=== PATIENT | female | born 1995 | race Caucasian/White ===

== ENCOUNTER 2016-12-29 15:14 | Emergency (ER) | payer BC ==
--- NOTE | 2016-12-29 15:44 | EDM.PDOC ---
ED HPI GENERAL MEDICAL PROBLEM - General Chief Complaint: Head Injury Stated Complaint: HIT HEAD Time Seen by Provider: 12/29/16 15:36 Source of Information: Reports: Patient History Limitations: Reports: No Limitations - History of Present Illness INITIAL COMMENTS - FREE TEXT/NARRATIVE: 21-year-old female presents to the ED after a fainting episode occurred while standing in the checkout line at [facility]. Patient states she did or shopping she felt okay. She was standing in the checkout line when she suddenly felt dizzy lightheaded and then collapsed to the floor. Unfortunately she struck her midline of her face on a wooden gate that traverses the checkout stand. This resulted in a hematoma to the midline of her frontal lower forehead and across the bridge of her nose. There's been some bleeding from the right naris but it stopped within a couple minutes of injury. She has a hematoma mid forehead. She is alert she is oriented there was no sign of seizure activity. She has not had much to eat or drink yet today. She was dressed warmly as it's quite cool outside. She is 22 weeks . All of this contributed to potential for fainting. Blood pressures running low during . She was not orthostatic in the ED. Neuro exam is normal before meals no indication for CT exam. Nasal septum is straight although she may have suffered a mild hairline fracture of the nasal spine no treatment would be indicated. Therefore x-rays were withheld. Patient reassured. Exposure to hot environments may make her more prone to fainting. Blood pressures running low in early . Patient advised about steps she can take to try and avoid a similar occurrence. May take Tylenol when necessary for headache relief and ice pack to the forehead to reduce the swelling. Onset: Today Onset Date: 12/29/16 Onset Time: 13:30 Duration: Minutes:, Hour(s): Location: Reports: Head, Face. Denies: Neck, Chest, Abdomen, Back, Pelvis, Upper Extremity, Left, Upper Extremity, Right, Lower Extremity, Left, Lower Extremity, Right Quality: Reports: Ache, Throbbing Severity: Moderate Improves with: Reports: None Worsens with: Reports: None Context: Reports: Other (fainting spell while standing andcheckout line at [facility].) Associated Symptoms: Reports: Other. 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 [No Known Home Meds] 12/29/16 [History] Past Medical History - Past Health History Medical/Surgical History: Denies Medical/Surgical History : 1 Para: 0 Social & Family History - Tobacco Use Smoking Status *Q: Never Smoker - Living Situation & Occupation Living situation: Reports: Single Occupation: Employed ED ROS GENERAL - Review of Systems Review Of Systems: See Below Constitutional: Reports: No Symptoms HEENT: Reports: Nosebleed (right side for about 2 minutes after injury.), Nose Pain (contusion to her nose when she passed out.). Denies: Contact Lenses, Dental Pain, Ear Discharge, Ear Pain, Eye Discharge, Eye Pain, Glasses, Hearing Loss Respiratory: Reports: No Symptoms Cardiovascular: Reports: No Symptoms Endocrine: Reports: No Symptoms GI/Abdominal: Reports: No Symptoms : Reports: No Symptoms Musculoskeletal: Reports: No Symptoms. Denies: Neck Pain, Shoulder Pain, Arm Pain, Back Pain Skin: Reports: No Symptoms Neurological: Reports: Headache, Other (has a hematoma midline of the lower forehead.) Psychiatric: Reports: No Symptoms Hematologic/Lymphatic: Reports: No Symptoms ( Approximately 2.5 cm in diameter) Immunologic: Reports: No Symptoms ED EXAM, HEAD INJURY - Physical Exam Exam: See Below Exam Limited By: No Limitations General Appearance: Alert, WD/WN, No Apparent Distress, Other (2.5 cm ecchymoses developing midline of her lower forehead between her eyebrows. Contusion to the bridge of her nose.). No: Anxious, Lethargic, Obtunded Head: Scalp Swelling (mid lower forehead.), Facial Swelling (mid lower forehead and bridge of nose) Nexus Criteria: No: Posterior, Midline Cervical Tenderness, Evidence of Intoxication, Altered Level of Consciousness, Focal Neurological Deficit, Painful Distraction Injuries Eyes: Bilateral Eye: Normal Inspection Ears: Normal TMs Nose: Other (there is fresh blood in the right naris without any nasal septal hematoma. The left naris is patent and normal. The nasal septum is a lot well aligned. It is tender to touch along the nasal spine but no deformities are evident.) Throat/Mouth: Normal Inspection, Normal Lips, Normal Teeth, Normal Oropharynx, Other ( midline. This will heal on its own. It is not actively bleeding.no dental injuries evident.) Neck: Non-Tender, Full Range of Motion, Normal Alignment, Normal Inspection. 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 No: CVA Tenderness (L), CVA Tenderness (R) Extremities: Normal Inspection, Normal Range of Motion, Non-Tender, No Pedal Edema, Normal Capillary Refill Neurologic: No Motor/Sensory Deficits, Alert, Normal Mood/Affect, Oriented x 3 Skin: Normal Color, Warm/Dry - [place] Coma Score Best Eye Response (Margaux): (4) Open Spontaneously Best Verbal Response (Margaux): (5) Oriented Best Motor Response ([place]): (6) Obeys Commands [place] Total: 15 Course - Vital Signs Last Recorded V/S: Last Vital Signs Temp 36.9 C 12/29/16 15:23 Pulse 79 12/29/16 15:23 Resp 18 12/29/16 15:23 BP 109/58 L 12/29/16 15:23 Pulse Ox 100 12/29/16 15:23 Orthostatic Blood Pressure [ 110/74 Standing] Orthostatic Blood Pressure [ 109/58 Supine] - Radiology Interpretation Free Text/Narrative:: 21-year-old female seen through the ED after fainting and [employer] at the checkout stand. She done her shopping was standing in line when she suddenly felt dizzy lightheaded and collapsed to the floor. She apparently came around immediately. They offered her the ambulance but she declined. She sat for a period time had some water and felt improved. Of note she is 22 weeks gestation. She's not had much to eat or drink today. She is not orthostatic. Neuro exam is completely normal. She has suffered blunt force injuries to her mid forehead with a hematoma between her eyebrows partially 2.5 cm ecchymosis and hematoma evident. Contusion to the bridge of her nose evident with possible hairline fracture of the nasal spine. There is no nasal septal hematoma in the septum is aligned normally. For x-rays and CT are not felt to be indicated at this time. She will be discharged to home to advised to have a good meal and plenty of fluids. Departure - Departure Time of Disposition: 15:47 Disposition: Home, Self-Care 01 Condition: Fair Clinical Impression: Fainting spell Contusion of face Qualifiers: Encounter type: initial encounter Qualified Code(s): S00.83XA - Contusion of other part of head, initial encounter - Discharge Information Instructions: Facial or Scalp Contusion, [id number], Syncope, [id number] Referrals: David Randle MD [Primary Care Provider] - Forms: ED Department Discharge Additional Instructions: Evaluation in the emergency room after a fainting event occurred while in the [employer] store. This occurred while standing in the checkout line after doing your shopping. By history your 22 weeks .by history you have not had a lot to eat or drink yet today. The history strongly suggests a fainting episode with blunt force trauma to your mid forehead and bridge of her nose. Loss of consciousness to sounded to be very transient. No associated evidence of seizure activity. Blood pressure tends to run low in . Also depends on much fluids you've had today whether or not she will may be a little bit low on your blood count I anemia from and then dressed warmly today due to outside temperature being rather cool. All of these factors appear to have contributed to low transient lowering of her blood pressure with a fainting spell occurring. You suffered blunt force trauma to your mid forehead with a hematoma in the midline and contusion to the bridge of your nose. There has been some bleeding from the right naris but no septal hematoma is evident. The nose is tender but is well aligned and if even if there is a hairline crack we would not need any further intervention. Neuro exam is completely normal. Therefore treatment is plenty of fluids such as Gatorade or Powerade and a good meal. No other restrictions are necessary or indicated at this time. At risk of further fainting episodes during when exposed to heat such as a hot tub or hot shower or bath. Follow-up with personal physician if any further problem's occur. It is okay to take Tylenol during for headache relief. 650 mg every 6 hours as needed
[2016-12-29 16:01] VITALS: BP 98/66
== END 2016-12-29 15:55 | disposition home or self-care (01) ==
LOC: JD.ED 15:14
DX: O99.89 Other specified diseases and conditions complicating pregnancy, childbirth and the puerperium (principal); R55 Syncope and collapse; O9A.212 Injury, poisoning and certain other consequences of external causes complicating pregnancy, second trimester; S00.83XA Contusion of other part of head, initial encounter; Z3A.22 22 weeks gestation of pregnancy; W19.XXXA Unspecified fall, initial encounter
CPT/HCPCS: 99284

== ENCOUNTER 2017-04-29 02:32 | Inpatient (IN) | payer BC ==
[2017-04-29] MEDS ORDERED: Nalbuphine 20 MG/1 ML Amp IVPUSH PRN (03:04)
[2017-04-29] MEDS ORDERED: Sodium Chloride 0.9% 10 ML Syringe FLUSH PRN (03:04)
[2017-04-29] MEDS ORDERED: Ondansetron 4 MG/2 ML SDV IVPUSH PRN (03:04)
[2017-04-29] MEDS: Lactated Ringers 1,000 ML IV SCH ×4 (03:15→07:25)
[2017-04-29] MEDS ORDERED: fentaNYL 100 MCG/2 ML SDV ONE (03:20)
[2017-04-29] MEDS ORDERED: ePHEDrine 50 MG/ML SDV IVPUSH PRN (03:27)
[2017-04-29] MEDS ORDERED: diphenhydrAMINE 50 MG/ML SDV IVPUSH PRN (03:27)
[2017-04-29] MEDS ORDERED: fentaNYL 100 MCG/2 ML SDV EPIDUR PRN (03:27)
[2017-04-29] MEDS ORDERED: Bupivacaine/fentaNYL/NS 100 ML Bag EPIDUR SCH (03:30)
--- NOTE | 2017-04-29 03:49 | PCM.LDHP ---
<Jorge Valdivia N - Last Filed: 04/29/17 03:49> L&D History of Present Illness - General Date of Service: 04/29/17 Admit Problem/Dx: Patient Status Order with Admit Dx/Problem 04/29/17 03:05 Patient Status [ADT] Routine Admission Diagnosis/Problem Admission Diagnosis/Problem Normal labor 04/29/17 03:27 Labor Source of Information: Patient, EMS, EMS Notes Reviewed History Limitations: Reports: No Limitations - History of Present Illness Introduction:: Michelle murphy a 21yo presents to labor and delivery in active labor at 4cm and 100. LMP was 07/24/16. She had regular menses occuring every 28 days. She was not on BC at conception, and menarche was at age 13. She has a history of incompetent cervix with a vaginal delivery at 17 weeks where the new born lived 2 hours. A cerclage was placed 11/09/16, which was removed at 38 weeks. She is GBS negative. At 20wk US a choroid plexus cyst was seen with no previa which has since resolved. She has TDAP in Dec 2016 and is Rubella Immune. She does have a history of recurrent UTI. She has a hitsory of Chlamydia infection with no active infection. She has had standard regular care to this point without complications except cerclage as noted above. Patient is A+ blood type. Last urine 04/21/17 was 1+ protein and Glucose negative. - Related Data Allergies/Adverse Reactions: Allergies Allergy/AdvReac Type Severity Reaction Status Date / Time No Known Allergies Allergy Verified 12/29/16 15:28 Home Medications: Home Meds Amoxicillin [Amoxicillin] 1 tab PO BID 04/29/17 [History] Past Medical History - Past Health History Medical/Surgical History: Denies Medical/Surgical History HEENT History: Reports: None Cardiovascular History: Reports: None Respiratory History: Reports: None Gastrointestinal History: Reports: None Genitourinary History: Reports: UTI, Recurrent Other Genitourinary History: history of chlamydia infection : 2 Para: 0 Other OB/BYN History: Cerclage Musculoskeletal History: Reports: None Neurological History: Reports: None Psychiatric History: Reports: None Endocrine/Metabolic History: Reports: None Hematologic History: Reports: None Immunologic History: Reports: None Oncologic (Cancer) History: Reports: None Dermatologic History: Reports: None - Infectious Disease History Infectious Disease History: Reports: None Social & Family History - Family History HEENT: Reports: None Other Cardiac Family History: Heart Disease paternal grandpa and maternal grandpa Respiratory: Reports: None Endocrine/Metabolic: Reports: Diabetes, type II Other Endocrine/Metabolic Family History: paternal grandpa - Tobacco Use Smoking Status *Q: Never Smoker - Alcohol Use Alcohol Use History: No - Recreational Drug Use Recreational Drug Use: No - Living Situation & Occupation Living situation: Reports: Single Occupation: Employed H&P Review of Systems - Review of Systems: Review Of Systems: ROS reveals no pertinent complaints other than HPI. L&D Exam - Exam Exam: See Below - Vital Signs Vital Signs: BP 120/60 Weight: 145 lb 2 oz - OB Specific Fundal Height In cm: 39 Movement: Active Heart Tones: Present Heart Tones per Min: 133 - Preston Score Preston Score Cervix Position: Posterior Preston Score Consistency: Soft Preston Score Effacement: >80% Preston Score Dilation: 3-4 cm Preston Score Infant's Station: -1 ,0 Preston Score Total: 9 - Exam General: Alert, Oriented HEENT: Conjunctiva Clear, EACs Clear, EOMI, Hearing Intact, Mucosa Moist & [place] , Nares Patent, Normal Nasal Septum, Posterior Pharynx Clear, Pupils Equal, Pupils Reactive, TMs Clear Neck: Supple, Trachea Midline Lungs: Clear to Auscultation, Normal Respiratory Effort Cardiovascular: Regular Rate, Regular Rhythm GI/Abdominal Exam: Normal Bowel Sounds, Soft, Non-Tender, No Organomegaly, No Distention, No Abnormal Bruit, No Mass, Pelvis Stable Back Exam: Full Range of Motion Skin: Warm, Dry, Intact Neurological: Cranial Nerves Intact, Reflexes Equal Bilateral Psychiatric: Alert, Normal Affect, Normal Mood - Patient Data Lab Results Last 24 hrs: Laboratory Results - last 24 hr 04/29/17 Range/Units 03:15 WBC 8.42 (3.98-10.04) K/mm3 RBC 4.36 (3.98-5.22) M/mm3 Hgb 12.5 (11.2-15.7) gm/L Hct 35.4 (34.1-44.9) % MCV 81.2 (79.4-94.8) fl MCH 28.7 (25.6-32.2) pg MCHC 35.3 (32.2-35.5) g/dl RDW Std Deviation 36.0 L (36.4-46.3) fL Plt Count 206 (182-369) K/mm3 MPV 11.8 (9.4-12.3) fl Neut % (Auto) 67.4 (34.0-71.1) % Lymph % (Auto) 21.1 (19.3-51.7) % [place] % (Auto) 9.9 (4.7-12.5) % Eos % (Auto) 0.8 (0.7-5.8) Baso % (Auto) 0.2 (0.1-1.2) % Neut # (Auto) 5.67 (1.56-6.13) K/mm3 Lymph # (Auto) 1.78 (1.18-3.74) K/mm3 [place] # (Auto) 0.83 H (0.24-0.36) K/mm3 Eos # (Auto) 0.07 (0.04-0.36) K/mm3 Baso # (Auto) 0.02 (0.01-0.08) K/mm3 Result Diagrams: 04/29/17 03:15 Problem List Initiated/Reviewed/Updated: Yes Orders Last 24hrs: Active Orders 24 hr Category Date Time Status Patient Status [ADT] Routine ADT 04/29/17 03:05 Active Activity as Tolerated [RC] PFP Care 04/29/17 03:04 Active Communication Order [RC] ASDIRECTED Care 04/29/17 03:04 Active Heart Tones [RC] ASDIRECTED Care 04/29/17 03:05 Active Notify Provider [RC] PFP Care 04/29/17 03:04 Active Notify Provider [RC] PRN Care 04/29/17 03:04 Active Peripheral IV Care [RC] . DIRECTED Care 04/29/17 03:05 Active Pump Management, Intrathecal [RC] ASDIRECTED Care 04/29/17 03:05 Active Urinary Catheter Assessment [RC] ASDIRECTED Care 04/29/17 03:04 Active Vital Signs [RC] PER UNIT ROUTINE Care 04/29/17 03:04 Active Regular Diet [DIET] Diet 04/29/17 Breakfast Active Lactated Ringers [Ringers, Lactated] 1,000 ml Med 04/29/17 03:15 Active IV ASDIRECTED Nalbuphine [Nubain] Med 04/29/17 03:04 Active 10 mg IVPUSH Q2H PRN Ondansetron [Zofran] Med 04/29/17 03:04 Active 4 mg IVPUSH Q4H PRN Oxytocin [Pitocin] 20 unit Med 04/29/17 03:15 Active Lactated Ringers [Ringers, Lactated] 1,000 ml IV ASDIRECTED Sodium Chloride 0.9% [Saline Flush] Med 04/29/17 03:04 Active 10 ml FLUSH ASDIRECTED PRN Electronic Heart Tones Ext w TOCO [WOMSER] Oth 04/29/17 03:04 Ordered Routine Electronic Heart Tones Internal [WOMSER] Per Unit Oth 04/29/17 03:04 Ordered Routine Peripheral IV Insertion Adult [OM.PC] Routine Ot 04/29/17 03:04 Ordered Resuscitation Status Routine Resus Stat 04/29/17 03:04 Ordered Medication Orders Lactated Ringer's (Ringers, Lactated) 1,000 mls @ 100 mls/hr IV ASDIRECTED MAINE Oxytocin 20 unit/ Lactated (Ringer's) 1,002 mls @ 1,503 mls/hr IV ASDIRECTED MAINE; 500 MUNITS/MIN PRN Reason: Protocol Nalbuphine HCl (Nubain) 10 mg IVPUSH Q2H PRN PRN Reason: Pain (moderate 4-6) Ondansetron HCl (Zofran) 4 mg IVPUSH Q4H PRN PRN Reason: Nausea/Vomiting Sodium Chloride (Saline Flush) 10 ml FLUSH ASDIRECTED PRN PRN Reason: Keep Vein Open Assessment/Plan Comment:: Observe in Labor and Delivery <David Randle - Last Filed: 04/29/17 08:29> L&D History of Present Illness - General Admit Problem/Dx: Patient Status Order with Admit Dx/Problem 04/29/17 03:05 Patient Status [ADT] Routine Admission Diagnosis/Problem Admission Diagnosis/Problem Normal labor Source of Information: Patient History Limitations: Reports: No Limitations - History of Present Illness Improves with: Reports: None Worsens with: Reports: None Associated Symptoms: Reports: N H&P Review of Systems - Review of Systems: Review Of Systems: See Below General: Reports: No Symptoms HEENT: Reports: No Symptoms Pulmonary: Reports: No Symptoms Cardiovascular: Reports: No Symptoms Gastrointestinal: Reports: No Symptoms Genitourinary: Reports: No Symptoms Musculoskeletal: Reports: No Symptoms Skin: Reports: No Symptoms Psychiatric: Reports: No Symptoms Neurological: Reports: No Symptoms Hematologic/Lymphatic: Reports: No Symptoms Immunologic: Reports: No Symptoms L&D Exam - Exam Exam: See Below - Vital Signs Vital Signs: Last Vital Signs Temp 97.8 F 04/29/17 03:30 Pulse 79 04/29/17 04:14 Resp 18 04/29/17 04:14 BP 108/57 L 04/29/17 04:14 Pulse Ox 98 04/29/17 04:14 - Patient Data Lab Results Last 24 hrs: Laboratory Results - last 24 hr 04/29/17 Range/Units 03:15 WBC 8.42 (3.98-10.04) K/mm3 RBC 4.36 (3.98-5.22) M/mm3 Hgb 12.5 (11.2-15.7) gm/L Hct 35.4 (34.1-44.9) % MCV 81.2 (79.4-94.8) fl MCH 28.7 (25.6-32.2) pg MCHC 35.3 (32.2-35.5) g/dl RDW Std Deviation 36.0 L (36.4-46.3) fL Plt Count 206 (182-369) K/mm3 MPV 11.8 (9.4-12.3) fl Neut % (Auto) 67.4 (34.0-71.1) % Lymph % (Auto) 21.1 (19.3-51.7) % [place] % (Auto) 9.9 (4.7-12.5) % Eos % (Auto) 0.8 (0.7-5.8) Baso % (Auto) 0.2 (0.1-1.2) % Neut # (Auto) 5.67 (1.56-6.13) K/mm3 Lymph # (Auto) 1.78 (1.18-3.74) K/mm3 [place] # (Auto) 0.83 H (0.24-0.36) K/mm3 Eos # (Auto) 0.07 (0.04-0.36) K/mm3 Baso # (Auto) 0.02 (0.01-0.08) K/mm3 Result Diagrams: 04/29/17 03:15 Orders Last 24hrs: Active Orders 24 hr Category Date Time Status Patient Status [ADT] Routine ADT 04/29/17 03:05 Active Activity as Tolerated [RC] PFP Care 04/29/17 03:04 Active Communication Order [RC] ASDIRECTED Care 04/29/17 03:04 Active Heart Tones [RC] ASDIRECTED Care 04/29/17 03:05 Active Notify Provider [RC] ASDIRECTED Care 04/29/17 03:27 Active Notify Provider [RC] PFP Care 04/29/17 03:04 Active Notify Provider [RC] PRN Care 04/29/17 03:04 Active Peripheral IV Care [RC] . DIRECTED Care 04/29/17 03:05 Active Pump Management, Intrathecal [RC] ASDIRECTED Care 04/29/17 03:05 Active Urinary Catheter Assessment [RC] ASDIRECTED Care 04/29/17 03:04 Active Vital Signs [RC] PER UNIT ROUTINE Care 04/29/17 03:04 Active Regular Diet [DIET] Diet 04/29/17 Breakfast Active Bupivacaine/fentaNYL/NS [fentaNYL/Bupivacaine/NS 2 MCG- Med 04/29/17 03:30 Active 0.125% 100 ML] 100 ml EPIDUR ASDIRECTED Lactated Ringers [Ringers, Lactated] 1,000 ml Med 04/29/17 03:15 Active IV ASDIRECTED Nalbuphine [Nubain] Med 04/29/17 03:04 Active 10 mg IVPUSH Q2H PRN Ondansetron [Zofran] Med 04/29/17 03:04 Active 4 mg IVPUSH Q4H PRN Oxytocin [Pitocin] 20 unit Med 04/29/17 03:15 Active Lactated Ringers [Ringers, Lactated] 1,000 ml IV ASDIRECTED Sodium Chloride 0.9% [Saline Flush] Med 04/29/17 03:04 Active 10 ml FLUSH ASDIRECTED PRN diphenhydrAMINE [Benadryl] Med 04/29/17 03:27 Active 25 mg IVPUSH Q6H PRN ePHEDrine [ePHEDrine Sulfate] Med 04/29/17 03:27 Active 5 mg IVPUSH ASDIRECTED PRN fentaNYL [Sublimaze] Med 04/29/17 03:27 Active 100 mcg EPIDUR ONETIME PRN Electronic Heart Tones Ext w TOCO [WOMSER] Oth 04/29/17 03:04 Ordered Routine Electronic Heart Tones Internal [WOMSER] Per Unit Oth 04/29/17 03:04 Ordered Routine Peripheral IV Insertion Adult [OM.PC] Routine Oth 04/29/17 03:04 Ordered Resuscitation Status Routine Resus Stat 04/29/17 03:04 Ordered Medication Orders Diphenhydramine HCl (Benadryl) 25 mg IVPUSH Q6H PRN PRN Reason: Pruritis Last Admin: 04/29/17 04:46 Dose: 25 mg Ephedrine Sulfate (Ephedrine Sulfate) 5 mg IVPUSH ASDIRECTED PRN PRN Reason: Hypotension Fentanyl (Sublimaze) 100 mcg EPIDUR ONETIME PRN PRN Reason: Pain Fentanyl/Bupivacaine HCl (Fentanyl/Bupivacaine/Ns 2 Mcg-0.125% 100 Ml) 100 ml EPIDUR ASDIRECTED [facility] Last Admin: 04/29/17 03:59 Dose: 100 ml Lactated Ringer's (Ringers, Lactated) 1,000 mls @ 100 mls/hr IV ASDIRECTED [facility] Last Admin: 04/29/17 07:25 Dose: 999 mls/hr Infusion: 04/29/17 05:33 Dose: 999 mls/hr Admin: 04/29/17 04:32 Dose: 999 mls/hr Infusion: 04/29/17 04:32 Dose: 999 mls/hr Admin: 04/29/17 03:37 Dose: 999 mls/hr Infusion: 04/29/17 03:37 Dose: 999 mls/hr Admin: 04/29/17 03:15 Dose: 999 mls/hr Oxytocin 20 unit/ Lactated (Ringer's) 1,002 mls @ 1,503 mls/hr IV ASDIRECTED [facility]; 500 MUNITS/MIN PRN Reason: Protocol Nalbuphine HCl (Nubain) 10 mg IVPUSH Q2H PRN PRN Reason: Pain (moderate 4-6) Ondansetron HCl (Zofran) 4 mg IVPUSH Q4H PRN PRN Reason: Nausea/Vomiting Sodium Chloride (Saline Flush) 10 ml FLUSH ASDIRECTED PRN PRN Reason: Keep Vein Open
--- NOTE | 2017-04-29 04:10 | PCM.PREANE ---
Preanesthetic Assessment - Anesthesia/Transfusion/Family Hx Anesthesia History: Prior Anesthesia Without Reaction Family History of Anesthesia Reaction: No Transfusion History: No Prior Transfusion(s) - Review of Systems General: No Symptoms Pulmonary: No Symptoms Cardiovascular: No Symptoms Gastrointestinal: No Symptoms Neurological: No Symptoms Other: Reports: None - Physical Assessment Pulse: 79 O2 Sat by Pulse Oximetry: 98 Respiratory Rate: 18 Blood Pressure: 108/57 Weight: 64.41 kg ASA Class: 2 Mental Status: Alert & Oriented x3 Airway Class: Mallampati = 2 Dentition: Reports: Normal Dentition Thyro-Mental Finger Breadths: 3 Mouth Opening Finger Breadths: 3 ROM/Head Extension: Full Lungs: Clear to Auscultation, Normal Respiratory Effort Cardiovascular: Regular Rate, Regular Rhythm - Lab Values: Laboratory Last Values WBC 8.42 K/mm3 (3.98-10.04) 04/29/17 03:15 RBC 4.36 M/mm3 (3.98-5.22) 04/29/17 03:15 Hgb 12.5 gm/L (11.2-15.7) 04/29/17 03:15 Hct 35.4 % (34.1-44.9) 04/29/17 03:15 MCV 81.2 fl (79.4-94.8) 04/29/17 03:15 MCH 28.7 pg (25.6-32.2) 04/29/17 03:15 MCHC 35.3 g/dl (32.2-35.5) 04/29/17 03:15 RDW Std Deviation 36.0 fL (36.4-46.3) L 04/29/17 03:15 Plt Count 206 K/mm3 (182-369) 04/29/17 03:15 MPV 11.8 fl (9.4-12.3) 04/29/17 03:15 Neut % (Auto) 67.4 % (34.0-71.1) 04/29/17 03:15 Lymph % (Auto) 21.1 % (19.3-51.7) 04/29/17 03:15 [place] % (Auto) 9.9 % (4.7-12.5) 04/29/17 03:15 Eos % (Auto) 0.8 (0.7-5.8) 04/29/17 03:15 Baso % (Auto) 0.2 % (0.1-1.2) 04/29/17 03:15 Neut # (Auto) 5.67 K/mm3 (1.56-6.13) 04/29/17 03:15 Lymph # (Auto) 1.78 K/mm3 (1.18-3.74) 04/29/17 03:15 [place] # (Auto) 0.83 K/mm3 (0.24-0.36) H 04/29/17 03:15 Eos # (Auto) 0.07 K/mm3 (0.04-0.36) 04/29/17 03:15 Baso # (Auto) 0.02 K/mm3 (0.01-0.08) 04/29/17 03:15 - Allergies Allergies/Adverse Reactions: Allergies Allergy/AdvReac Type Severity Reaction Status Date / Time No Known Allergies Allergy Verified 12/29/16 15:28 - Acknowledgements Anesthesia Type Planned: Epidural Pt an Appropriate Candidate for the Planned Anesthesia: Yes Alternatives and Risks of Anesthesia Discussed w Pt/Guardian: Yes Pt/Guardian Understands and Agrees with Anesthesia Plan: Yes PreAnesthesia Questionnaire - Past Health History Medical/Surgical History: Denies Medical/Surgical History HEENT History: Reports: None Cardiovascular History: Reports: None Respiratory History: Reports: None Gastrointestinal History: Reports: None Genitourinary History: Reports: UTI, Recurrent Other Genitourinary History: history of chlamydia infection Other OB/BYN History: [place] Musculoskeletal History: Reports: None Neurological History: Reports: None Psychiatric History: Reports: None Endocrine/Metabolic History: Reports: None Hematologic History: Reports: None Immunologic History: Reports: None Oncologic (Cancer) History: Reports: None Dermatologic History: Reports: None - Infectious Disease History Infectious Disease History: Reports: None - SUBSTANCE USE Smoking Status *Q: Never Smoker - HOME MEDS Home Medications: Home Meds Amoxicillin [Amoxicillin] 04/29/17 [History] - CURRENT (IN HOUSE) MEDS Current Meds: Current Medications Diphenhydramine HCl (Benadryl) 25 mg IVPUSH Q6H PRN PRN Reason: Pruritis Ephedrine Sulfate (Ephedrine Sulfate) 5 mg IVPUSH ASDIRECTED PRN PRN Reason: Hypotension Fentanyl (Sublimaze) 100 mcg EPIDUR ONETIME PRN PRN Reason: Pain Fentanyl/Bupivacaine HCl (Fentanyl/Bupivacaine/Ns 2 Mcg-0.125% 100 Ml) 100 ml EPIDUR ASDIRECTED [facility] Last Admin: 04/29/17 03:59 Dose: 100 ml Lactated Ringer's (Ringers, Lactated) 1,000 mls @ 100 mls/hr IV ASDIRECTED [facility] Last Admin: 04/29/17 03:37 Dose: 999 mls/hr Oxytocin 20 unit/ Lactated (Ringer's) 1,002 mls @ 1,503 mls/hr IV ASDIRECTED [place]; 500 MUNITS/MIN PRN Reason: Protocol Nalbuphine HCl (Nubain) 10 mg IVPUSH Q2H PRN PRN Reason: Pain (moderate 4-6) Ondansetron HCl (Zofran) 4 mg IVPUSH Q4H PRN PRN Reason: Nausea/Vomiting Sodium Chloride (Saline Flush) 10 ml FLUSH ASDIRECTED PRN PRN Reason: Keep Vein Open Discontinued Medications Fentanyl (Sublimaze) Confirm Administered Dose 100 mcg .ROUTE .[facility]-MED ONE Stop: 04/29/17 03:21 Last Admin: 04/29/17 03:59 Dose: 100 mcg
--- NOTE | 2017-04-29 08:37 | PCM.DEL ---
L & D Note - General Info Mother's Due Date: 04/29/17 - Delivery Note Labor: Spontaneous Delivery Outcome: Livebirth (Female liveborn at 0810 hrs. on 04/29/17 SONI weight pending Apgars 8/9 true knot in the cord) Delivery Method: Spontaneous Vaginal Delivery-Single Delivery Mode: Spontaneous Presentation: Left Occiput Anterior (SONI) Nuchal Cord: None (True knot in the umbilical cord) Prep: Povidone-Iodine (Betadine Anesthesia Type: Epidural Amniotic Fluid Description: Clear (Amniotomy performed at 0806 hrs.) Episiotomy Type: None Laceration: 1st Degree (Bilateral midline first-degree lacerations and one first -degree laceration labia minora medial surface at the level of the urethra) Suture type: Other (Monocryl) Suture size: 3-0 Placenta: Intact, Spontaneous (Delivered at 0814 hrs. on 04/29/17 intact discarded) Cord: 3 Vessels Estimated Blood Loss: 250 Resuscitation Needed: No : Suctioned, Bulb Syringe, Stimulated, Warmed, [place] Used, Warmer Used Provider: David Randle Score 1 min: 8 Score 5 min: 9 - Patient Data Vitals - Most Recent: Last Vital Signs Temp 97.8 F 04/29/17 03:30 Pulse 79 04/29/17 04:14 Resp 18 04/29/17 04:14 BP 108/57 L 04/29/17 04:14 Pulse Ox 98 04/29/17 04:14 Weight - Most Recent: 141 lb 15.996 oz Lab Results Last 24 Hours: Laboratory Results - last 24 hr 04/29/17 Range/Units 03:15 WBC 8.42 (3.98-10.04) K/mm3 RBC 4.36 (3.98-5.22) M/mm3 Hgb 12.5 (11.2-15.7) gm/L Hct 35.4 (34.1-44.9) % MCV 81.2 (79.4-94.8) fl MCH 28.7 (25.6-32.2) pg MCHC 35.3 (32.2-35.5) g/dl RDW Std Deviation 36.0 L (36.4-46.3) fL Plt Count 206 (182-369) K/mm3 MPV 11.8 (9.4-12.3) fl Neut % (Auto) 67.4 (34.0-71.1) % Lymph % (Auto) 21.1 (19.3-51.7) % [place] % (Auto) 9.9 (4.7-12.5) % Eos % (Auto) 0.8 (0.7-5.8) Baso % (Auto) 0.2 (0.1-1.2) % Neut # (Auto) 5.67 (1.56-6.13) K/mm3 Lymph # (Auto) 1.78 (1.18-3.74) K/mm3 [place] # (Auto) 0.83 H (0.24-0.36) K/mm3 Eos # (Auto) 0.07 (0.04-0.36) K/mm3 Baso # (Auto) 0.02 (0.01-0.08) K/mm3 Med Orders - Current: Current Medications Diphenhydramine HCl (Benadryl) 25 mg IVPUSH Q6H PRN PRN Reason: Pruritis Last Admin: 04/29/17 04:46 Dose: 25 mg Ephedrine Sulfate (Ephedrine Sulfate) 5 mg IVPUSH ASDIRECTED PRN PRN Reason: Hypotension Fentanyl (Sublimaze) 100 mcg EPIDUR ONETIME PRN PRN Reason: Pain Fentanyl/Bupivacaine HCl (Fentanyl/Bupivacaine/Ns 2 Mcg-0.125% 100 Ml) 100 ml EPIDUR ASDIRECTED [facility] Last Admin: 04/29/17 03:59 Dose: 100 ml Lactated Ringer's (Ringers, Lactated) 1,000 mls @ 100 mls/hr IV ASDIRECTED [facility] Last Admin: 04/29/17 07:25 Dose: 999 mls/hr Oxytocin 20 unit/ Lactated (Ringer's) 1,002 mls @ 1,503 mls/hr IV ASDIRECTED [facility]; 500 MUNITS/MIN PRN Reason: Protocol Nalbuphine HCl (Nubain) 10 mg IVPUSH Q2H PRN PRN Reason: Pain (moderate 4-6) Ondansetron HCl (Zofran) 4 mg IVPUSH Q4H PRN PRN Reason: Nausea/Vomiting Sodium Chloride (Saline Flush) 10 ml FLUSH ASDIRECTED PRN PRN Reason: Keep Vein Open Discontinued Medications Fentanyl (Sublimaze) Confirm Administered Dose 100 mcg .ROUTE .[facility]-MED ONE Stop: 04/29/17 03:21 Last Admin: 04/29/17 03:59 Dose: 100 mcg - Problem List & Annotations (1) 39 weeks gestation of SNOMED Code(s): 45885637 Code(s): Z3A.39 - 39 WEEKS GESTATION OF Status: Acute Current Visit: Yes (2) First degree laceration of perineum during delivery, SNOMED Code(s): 800765149 Code(s): O70.0 - FIRST DEGREE PERINEAL LACERATION DURING DELIVERY Status: Acute Current Visit: Yes (3) True knot of umbilical cord, delivered SNOMED Code(s): 11062853 Code(s): O69.2XX0 - LABOR AND DEL COMP BY OT CORD ENTANGLE, W COMPRSN, UNSP Status: Acute Current Visit: Yes - Problem List Review Problem List Initiated/Reviewed/Updated: No - My Orders Last 24 Hours: My Active Orders 04/29/17 03:04 Activity as Tolerated [RC] PFP Communication Order [RC] ASDIRECTED Notify Provider [RC] PFP Notify Provider [RC] PRN Urinary Catheter Assessment [RC] ASDIRECTED Vital Signs [RC] PER UNIT ROUTINE Nalbuphine [Nubain] 10 mg IVPUSH Q2H PRN Ondansetron [Zofran] 4 mg IVPUSH Q4H PRN Sodium Chloride 0.9% [Saline Flush] 10 ml FLUSH ASDIRECTED PRN Electronic Heart Tones Ext w TOCO [WOMSER] Routine Electronic Heart Tones Internal [WOMSER] Per Unit Routine Peripheral IV Insertion Adult [OM.PC] Routine Resuscitation Status Routine 04/29/17 03:05 Patient Status [ADT] Routine Heart Tones [RC] ASDIRECTED Peripheral IV Care [RC] . DIRECTED Pump Management, Intrathecal [RC] ASDIRECTED 04/29/17 03:15 Lactated Ringers [Ringers, Lactated] 1,000 ml IV ASDIRECTED Oxytocin [Pitocin] 20 unit Lactated Ringers [Ringers, Lactated] 1,000 ml IV ASDIRECTED 04/29/17 Breakfast Regular Diet [DIET] - Plan Plan:: Observe in Labor and Delivery
[2017-04-29] MEDS ORDERED: Docusate Sodium 100 MG Cap PO PRN (08:56)
[2017-04-29] MEDS ORDERED: Acetaminophen 325 MG Tab PO PRN (08:56)
[2017-04-29] MEDS ORDERED: Benzocaine/Menthol 20%-0.5% Spray 56 GM Canister TOP PRN (09:12)
[2017-04-29] MEDS ORDERED: Witch Hazel Medicated Pads 100/Jar TOP PRN (09:12)
[2017-04-29] MEDS: Ibuprofen 600 MG Tab PO PRN (09:23)
--- NOTE | 2017-04-29 14:14 | PCM48HPAN ---
Post Anesthesia Note - EVALUATION WITHIN 48HRS OF ANESTHETIC Vital Signs in Normal Range: Yes Patient Participated in Evaluation: Yes Respiratory Function Stable: Yes Airway Patent: Yes Cardiovascular Function Stable: Yes Hydration Status Stable: Yes Pain Control Satisfactory: Yes Nausea and Vomiting Control Satisfactory: Yes Mental Status Recovered: Yes - COMMENTS/OBSERVATIONS Free Text/Narrative:: Patient doing well resting in bed. Only has a complaint of some residual numbness to right lower abdomen about a 4" diameter in size. I told her it should resolve with time beings her epidural was recently discontinued a few hours ago. I told her we will stop by and check on her once again tomorrow. Otherwise doing well.
[2017-04-29] MEDS ORDERED: Bupivacaine 0.25% 10 ML SDV ONE (22:22)
[2017-04-30] MEDS: Ibuprofen 600 MG Tab PO PRN (01:05)
[2017-04-30 03:24] VITALS: BP 111/70
--- NOTE | 2017-04-30 11:47 | PCM.DCSUM1 ---
Discharge Summary - Hospital Course Free Text/Narrative:: [facility] LIVE L/D Delivery Note Patient Name: CHELI BLANCO Date of : 89 Patient Status: Inpatient Attending Provider: David Randle Date: 04/29/17 08:30 Initialization Date: 04/29/17 08:30 L & D Note - General Info Mother's Due Date: 04/29/17 - Delivery Note Labor: Spontaneous Delivery Outcome: Livebirth (Female liveborn at 0810 hrs. on 04/29/17 SONI weight pending Apgars 8/9 true knot in the cord) Delivery Method: Spontaneous Vaginal Delivery-Single Infant Delivery Mode: Spontaneous Presentation: Left Occiput Anterior (SONI) Nuchal Cord: None (True knot in the umbilical cord) Prep: Povidone-Iodine (Betadine Anesthesia Type: Epidural Amniotic Fluid Description: Clear (Amniotomy performed at 0806 hrs.) Episiotomy Type: None Laceration: 1st Degree (Bilateral midline first-degree lacerations and one first -degree laceration labia minora medial surface at the level of the urethra) Suture type: Other (Monocryl) Suture size: 3-0 Placenta: Intact, Spontaneous (Delivered at 0814 hrs. on 04/29/17 intact discarded) Cord: 3 Vessels Estimated Blood Loss: 250 Resuscitation Needed: No [place]: Suctioned, Bulb Syringe, Stimulated, Warmed, [place] Used, Warmer Used Provider: David Randle Score 1 min: 8 Score 5 min: 9 - Patient Data Vitals - Most Recent: Last Vital Signs Temp 97.8 F 04/29/17 03:30 Pulse 79 04/29/17 04:14 Resp 18 04/29/17 04:14 BP 108/57 L 04/29/17 04:14 Pulse Ox 98 04/29/17 04:14 Weight - Most Recent: 141 lb 15.996 oz Lab Results Last 24 Hours: Laboratory Results - last 24 hr 04/29/17 Range/Units 03:15 WBC 8.42 (3.98-10.04) K/mm3 RBC 4.36 (3.98-5.22) M/mm3 Hgb 12.5 (11.2-15.7) gm/L Hct 35.4 (34.1-44.9) % MCV 81.2 (79.4-94.8) fl MCH 28.7 (25.6-32.2) pg MCHC 35.3 (32.2-35.5) g/dl RDW Std Deviation 36.0 L (36.4-46.3) fL Plt Count 206 (182-369) K/mm3 MPV 11.8 (9.4-12.3) fl Neut % (Auto) 67.4 (34.0-71.1) % Lymph % (Auto) 21.1 (19.3-51.7) % [place] % (Auto) 9.9 (4.7-12.5) % Eos % (Auto) 0.8 (0.7-5.8) Baso % (Auto) 0.2 (0.1-1.2) % Neut # (Auto) 5.67 (1.56-6.13) K/mm3 Lymph # (Auto) 1.78 (1.18-3.74) K/mm3 [place] # (Auto) 0.83 H (0.24-0.36) K/mm3 Eos # (Auto) 0.07 (0.04-0.36) K/mm3 Baso # (Auto) 0.02 (0.01-0.08) K/mm3 Med Orders - Current: Current Medications Diphenhydramine HCl (Benadryl) 25 mg IVPUSH Q6H PRN PRN Reason: Pruritis Last Admin: 04/29/17 04:46 Dose: 25 mg Ephedrine Sulfate (Ephedrine Sulfate) 5 mg IVPUSH ASDIRECTED PRN PRN Reason: Hypotension Fentanyl (Sublimaze) 100 mcg EPIDUR ONETIME PRN PRN Reason: Pain Fentanyl/Bupivacaine HCl (Fentanyl/Bupivacaine/Ns 2 Mcg-0.125% 100 Ml) 100 ml EPIDUR ASDIRECTED [facility] Last Admin: 04/29/17 03:59 Dose: 100 ml Lactated Ringer's (Ringers, Lactated) 1,000 mls @ 100 mls/hr IV ASDIRECTED [facility] Last Admin: 04/29/17 07:25 Dose: 999 mls/hr Oxytocin 20 unit/ Lactated (Ringer's) 1,002 mls @ 1,503 mls/hr IV ASDIRECTED MAINE; 500 MUNITS/MIN PRN Reason: Protocol Nalbuphine HCl (Nubain) 10 mg IVPUSH Q2H PRN PRN Reason: Pain (moderate 4-6) Ondansetron HCl (Zofran) 4 mg IVPUSH Q4H PRN PRN Reason: Nausea/Vomiting Sodium Chloride (Saline Flush) 10 ml FLUSH ASDIRECTED PRN PRN Reason: Keep Vein Open Discontinued Medications Fentanyl (Sublimaze) Confirm Administered Dose 100 mcg .ROUTE .STViibar-MED ONE Stop: 04/29/17 03:21 Last Admin: 04/29/17 03:59 Dose: 100 mcg - Problem List & Annotations (1) 39 weeks gestation of SNOMED Code(s): 36285348 Code(s): Z3A.39 - 39 WEEKS GESTATION OF Status: Acute Current Visit: Yes (2) First degree laceration of perineum during delivery, SNOMED Code(s): 091171277 Code(s): O70.0 - FIRST DEGREE PERINEAL LACERATION DURING DELIVERY Status: Acute Current Visit: Yes (3) True knot of umbilical cord, delivered SNOMED Code(s): 72386282 Code(s): O69.2XX0 - LABOR AND DEL COMP BY Charlie RUSH UNSP Status: Acute Current Visit: Yes - Problem List Review Problem List Initiated/Reviewed/Updated: No - My Orders Last 24 Hours: My Active Orders 04/29/17 03:04 Activity as Tolerated [RC] PFP Communication Order [RC] ASDIRECTED Notify Provider [RC] PFP Notify Provider [RC] PRN Urinary Catheter Assessment [RC] ASDIRECTED Vital Signs [RC] PER UNIT ROUTINE Nalbuphine [Nubain] 10 mg IVPUSH Q2H PRN Ondansetron [Zofran] 4 mg IVPUSH Q4H PRN Sodium Chloride 0.9% [Saline Flush] 10 ml FLUSH ASDIRECTED PRN Electronic Heart Tones Ext w TOCO [WOMSER] Routine Electronic Heart Tones Internal [WOMSER] Per Unit Routine Peripheral IV Insertion Adult [OM.PC] Routine Resuscitation Status Routine 04/29/17 03:05 Patient Status [ADT] Routine Heart Tones [RC] ASDIRECTED Peripheral IV Care [RC] . DIRECTED Pump Management, Intrathecal [RC] ASDIRECTED 04/29/17 03:15 Lactated Ringers [Ringers, Lactated] 1,000 ml IV ASDIRECTED Oxytocin [Pitocin] 20 unit Lactated Ringers [Ringers, Lactated] 1,000 ml IV ASDIRECTED 04/29/17 Breakfast Regular Diet [DIET] - Plan Plan:: Observe in Labor and Delivery HPI Initial Comments: [facility] LIVE L/D Delivery Note Patient Name: CHELI BLANCO Date of : 89 Patient Status: Inpatient Attending Provider: David Randle Date: 04/29/17 08:30 Initialization Date: 04/29/17 08:30 L & D Note - General Info Mother's Due Date: 04/29/17 - Delivery Note Labor: Spontaneous Delivery Outcome: Livebirth (Female liveborn at 0810 hrs. on 04/29/17 SONI weight pending Apgars 8/9 true knot in the cord) Delivery Method: Spontaneous Vaginal Delivery-Single Delivery Mode: Spontaneous Presentation: Left Occiput Anterior (SONI) Nuchal Cord: None (True knot in the umbilical cord) Prep: Povidone-Iodine (Betadine Anesthesia Type: Epidural Amniotic Fluid Description: Clear (Amniotomy performed at 0806 hrs.) Episiotomy Type: None Laceration: 1st Degree (Bilateral midline first-degree lacerations and one first -degree laceration labia minora medial surface at the level of the urethra) Suture type: Other (Monocryl) Suture size: 3-0 Placenta: Intact, Spontaneous (Delivered at 0814 hrs. on 04/29/17 intact discarded) Cord: 3 Vessels Estimated Blood Loss: 250 Resuscitation Needed: No [place]: Suctioned, Bulb Syringe, Stimulated, Warmed, [place] Used, Warmer Used Provider: David Randle Score 1 min: 8 Score 5 min: 9 - Patient Data Vitals - Most Recent: Last Vital Signs Temp 97.8 F 04/29/17 03:30 Pulse 79 04/29/17 04:14 Resp 18 04/29/17 04:14 BP 108/57 L 04/29/17 04:14 Pulse Ox 98 04/29/17 04:14 Weight - Most Recent: 141 lb 15.996 oz Lab Results Last 24 Hours: Laboratory Results - last 24 hr 04/29/17 Range/Units 03:15 WBC 8.42 (3.98-10.04) K/mm3 RBC 4.36 (3.98-5.22) M/mm3 Hgb 12.5 (11.2-15.7) gm/L Hct 35.4 (34.1-44.9) % MCV 81.2 (79.4-94.8) fl MCH 28.7 (25.6-32.2) pg MCHC 35.3 (32.2-35.5) g/dl RDW Std Deviation 36.0 L (36.4-46.3) fL Plt Count 206 (182-369) K/mm3 MPV 11.8 (9.4-12.3) fl Neut % (Auto) 67.4 (34.0-71.1) % Lymph % (Auto) 21.1 (19.3-51.7) % [place] % (Auto) 9.9 (4.7-12.5) % Eos % (Auto) 0.8 (0.7-5.8) Baso % (Auto) 0.2 (0.1-1.2) % Neut # (Auto) 5.67 (1.56-6.13) K/mm3 Lymph # (Auto) 1.78 (1.18-3.74) K/mm3 [place] # (Auto) 0.83 H (0.24-0.36) K/mm3 Eos # (Auto) 0.07 (0.04-0.36) K/mm3 Baso # (Auto) 0.02 (0.01-0.08) K/mm3 Med Orders - Current: Current Medications Diphenhydramine HCl (Benadryl) 25 mg IVPUSH Q6H PRN PRN Reason: Pruritis Last Admin: 04/29/17 04:46 Dose: 25 mg Ephedrine Sulfate (Ephedrine Sulfate) 5 mg IVPUSH ASDIRECTED PRN PRN Reason: Hypotension Fentanyl (Sublimaze) 100 mcg EPIDUR ONETIME PRN PRN Reason: Pain Fentanyl/Bupivacaine HCl (Fentanyl/Bupivacaine/Ns 2 Mcg-0.125% 100 Ml) 100 ml EPIDUR ASDIRECTED [place] Last Admin: 04/29/17 03:59 Dose: 100 ml Lactated Ringer's (Ringers, Lactated) 1,000 mls @ 100 mls/hr IV ASDIRECTED [place] Last Admin: 04/29/17 07:25 Dose: 999 mls/hr Oxytocin 20 unit/ Lactated (Ringer's) 1,002 mls @ 1,503 mls/hr IV ASDIRECTED [place]; 500 MUNITS/MIN PRN Reason: Protocol Nalbuphine HCl (Nubain) 10 mg IVPUSH Q2H PRN PRN Reason: Pain (moderate 4-6) Ondansetron HCl (Zofran) 4 mg IVPUSH Q4H PRN PRN Reason: Nausea/Vomiting Sodium Chloride (Saline Flush) 10 ml FLUSH ASDIRECTED PRN PRN Reason: Keep Vein Open Discontinued Medications Fentanyl (Sublimaze) Confirm Administered Dose 100 mcg .ROUTE .STK-MED ONE Stop: 04/29/17 03:21 Last Admin: 04/29/17 03:59 Dose: 100 mcg - Problem List & Annotations (1) 39 weeks gestation of SNOMED Code(s): 79371684 Code(s): Z3A.39 - 39 WEEKS GESTATION OF Status: Acute Current Visit: Yes (2) First degree laceration of perineum during delivery, SNOMED Code(s): 524986624 Code(s): O70.0 - FIRST DEGREE PERINEAL LACERATION DURING DELIVERY Status: Acute Current Visit: Yes (3) True knot of umbilical cord, delivered SNOMED Code(s): 69258157 Code(s): O69.2XX0 - LABOR AND DEL COMP BY OTH CORD ENTANGLE, W COMPRSN, UNSP Status: Acute Current Visit: Yes - Problem List Review Problem List Initiated/Reviewed/Updated: No - My Orders Last 24 Hours: My Active Orders 04/29/17 03:04 Activity as Tolerated [RC] PFP Communication Order [RC] ASDIRECTED Notify Provider [RC] PFP Notify Provider [RC] PRN Urinary Catheter Assessment [RC] ASDIRECTED Vital Signs [RC] PER UNIT ROUTINE Nalbuphine [Nubain] 10 mg IVPUSH Q2H PRN Ondansetron [Zofran] 4 mg IVPUSH Q4H PRN Sodium Chloride 0.9% [Saline Flush] 10 ml FLUSH ASDIRECTED PRN Electronic Heart Tones Ext w TOCO [WOMSER] Routine Electronic Heart Tones Internal [WOMSER] Per Unit Routine Peripheral IV Insertion Adult [OM.PC] Routine Resuscitation Status Routine 04/29/17 03:05 Patient Status [ADT] Routine Heart Tones [RC] ASDIRECTED Peripheral IV Care [RC] . DIRECTED Pump Management, Intrathecal [RC] ASDIRECTED 04/29/17 03:15 Lactated Ringers [Ringers, Lactated] 1,000 ml IV ASDIRECTED Oxytocin [Pitocin] 20 unit Lactated Ringers [Ringers, Lactated] 1,000 ml IV ASDIRECTED 04/29/17 Breakfast Regular Diet [DIET] - Plan Plan:: Observe in Labor and Delivery Brief History: [facility]IVE . L/D Delivery Note. [facility]: [id number]. Date of : [birth year]Patient Status: Inpatient. Attending Provider: David Randle Number: [id number]. Date: 04/29/17 08:30Initialization Date: 04/29/17 08:30. L & D Note. - General Info. Mother's Due Date: 04/29/17. - Delivery Note. Labor: Spontaneous. Delivery Outcome: Livebirth (Female liveborn at 0810 hrs. on 04/29/17 SONI weight pending Apgars 8/9 true knot in the cord). Delivery Method: Spontaneous Vaginal Delivery-Single. Infant Delivery Mode: Spontaneous. Presentation: Left Occiput Anterior (SONI). Nuchal Cord: None (True knot in the umbilical cord). Prep: Povidone-Iodine (Betadine. Anesthesia Type: Epidural. Amniotic Fluid Description: Clear (Amniotomy performed at 0806 hrs.). Episiotomy Type: None. Laceration: 1st Degree ( Bilateral midline first-degree lacerations and one first-degree laceration labia minora medial surface at the level of the urethra). Suture type: Other ( Monocryl). Suture size: 3-0. Placenta: Intact, Spontaneous (Delivered at 0814 hrs. on 04/29/17 intact discarded). Cord: 3 Vessels. Estimated Blood Loss: 250. Resuscitation Needed: No. [place]: Suctioned, Bulb Syringe, Stimulated, Warmed, [place] Used, Warmer Used. Provider: David Randle. Score 1 min: 8. Score 5 min: 9. - Patient Data. Vitals - Most Recent: Last Vital Signs. Temp 97.8 F 04/29/17 03:30. Pulse 79 04/29/17 04:14. Resp 18 04/29/17 04:14. BP 108/57 L 04/29/17 04:14. Pulse Ox 98 04/29/17 04:14. Weight - Most Recent: 141 lb 15.996 oz. Lab Results Last 24 Hours: Laboratory Results - last 24 hr. 04/29/17Range/Units. 03:15. WBC 8.42 (3.98-10.04) K/mm3. RBC 4.36 (3.98-5.22) M/mm3. Hgb 12.5 ( 11.2-15.7) gm/L. Hct 35.4 (34.1-44.9) %. MCV 81.2 (79.4-94.8) fl. MCH 28.7 (25.6-32.2) pg. MCHC 35.3 (32.2-35.5) g/dl. RDW Std Deviation 36.0 L ( 36.4-46.3) fL. Plt Count 206 (182-369) K/mm3. MPV 11.8 (9.4-12.3) fl. Neut % (Auto) 67.4 (34.0-71.1) %. Lymph % (Auto) 21.1 (19.3-51.7) %. [place] % (Auto) 9.9 (4.7-12.5) %. Eos % (Auto) 0.8 (0.7-5.8). Baso % (Auto) 0.2 (0.1- 1.2) %. Neut # (Auto) 5.67 (1.56-6.13) K/mm3. Lymph # (Auto) 1.78 (1.18-3.74 ) K/mm3. [place] # (Auto) 0.83 H (0.24-0.36) K/mm3. Eos # (Auto) 0.07 (0.04- 0.36) K/mm3. Baso # (Auto) 0.02 (0.01-0.08) K/mm3. Med Orders - Current: Current Medications. Diphenhydramine HCl (Benadryl) 25 mg IVPUSH Q6H PRN. PRN Reason: Pruritis. Last Admin: 04/29/17 04:46 Dose: 25 mg. Ephedrine Sulfate (Ephedrine Sulfate) 5 mg IVPUSH ASDIRECTED PRN. PRN Reason: Hypotension. Fentanyl (Sublimaze) 100 mcg EPIDUR ONETIME PRN. PRN Reason: Pain. Fentanyl/Bupivacaine HCl (Fentanyl/Bupivacaine/Ns 2 Mcg-0.125% 100 Ml) 100 ml EPIDUR ASDIRECTED [place]. Last Admin: 04/29/17 03:59 Dose: 100 ml. Lactated Ringer's (Ringers, Lactated) 1,000 mls @ 100 mls/hr IV ASDIRECTED [place]. Last Admin: 04/29/17 07:25 Dose: 999 mls/hr. Oxytocin 20 unit/ Lactated (Ringer's) 1,002 mls @ 1,503 mls/hr IV ASDIRECTED [place]; 500 MUNITS/MIN. PRN Reason: Protocol. Nalbuphine HCl (Nubain) 10 mg IVPUSH Q2H PRN. PRN Reason: Pain (moderate 4-6). Ondansetron HCl (Zofran) 4 mg IVPUSH Q4H PRN. PRN Reason : Nausea/Vomiting. Sodium Chloride (Saline Flush) 10 ml FLUSH ASDIRECTED PRN. PRN Reason: Keep Vein Open. Discontinued Medications. Fentanyl (Sublimaze) Confirm Administered Dose 100 mcg .ROUTE .STK-MED ONE. Stop: 04/29/17 03:21. Last Admin: 04/29/17 03:59 Dose: 100 mcg. - Problem List & Annotations. (1) 39 weeks gestation of . SNOMED Code(s): 60656998. Code(s): Z3A.39 - 39 WEEKS GESTATION OF Status: Acute Current Visit: Yes. (2) First degree laceration of perineum during delivery, . SNOMED Code(s) : 810780203. Code(s): O70.0 - FIRST DEGREE PERINEAL LACERATION DURING DELIVERY Status: Acute Current Visit: Yes. (3) True knot of umbilical cord, delivered. SNOMED Code(s): 79167911. Code(s): O69.2XX0 - LABOR AND DEL COMP BY OTH CORD ENTANGLE, W COMPRSN, UNSP Status: Acute Current Visit: Yes. - Problem List Review. Problem List Initiated/Reviewed/Updated: No. - My Orders. Last 24 Hours: My Active Orders. 04/29/17 03:04. Activity as Tolerated [RC] PFP. Communication Order [RC] ASDIRECTED. Notify Provider [RC] PFP. Notify Provider [RC] PRN. Urinary Catheter Assessment [RC] ASDIRECTED. Vital Signs [RC] PER UNIT ROUTINE. Nalbuphine [Nubain] 10 mg IVPUSH Q2H PRN. Ondansetron [Zofran] 4 mg IVPUSH Q4H PRN. Sodium Chloride 0.9% [Saline Flush] 10 ml FLUSH ASDIRECTED PRN. Electronic Heart Tones Ext w TOCO [ WOMSER] Routine. Electronic Heart Tones Internal [WOMSER] Per Unit Routine. Peripheral IV Insertion Adult [OM.PC] Routine. Resuscitation Status Routine. 04/29/17 03:05. Patient Status [ADT] Routine. Heart Tones [RC ] ASDIRECTED. Peripheral IV Care [RC] . DIRECTED. Pump Management, Intrathecal [RC] ASDIRECTED. 04/29/17 03:15. Lactated Ringers [Ringers, Lactated] 1,000 ml IV ASDIRECTED. Oxytocin [Pitocin] 20 unit Lactated Ringers [Ringers, Lactated] 1,000 ml IV ASDIRECTED. 04/29/17 Breakfast. Regular Diet [DIET]. - Plan. Plan:: Observe in Labor and Delivery - Discharge Data Discharge Date: 04/30/17 Discharge Disposition: Home, Self-Care 01 Condition: Good - Discharge Diagnosis/Problem(s) (1) 39 weeks gestation of SNOMED Code(s): 10254882 ICD Code: Z3A.39 - 39 WEEKS GESTATION OF Status: Acute Current Visit: Yes (2) First degree laceration of perineum during delivery, SNOMED Code(s): 054052025 ICD Code: O70.0 - FIRST DEGREE PERINEAL LACERATION DURING DELIVERY Status: Acute Current Visit: Yes (3) True knot of umbilical cord, delivered SNOMED Code(s): 90781172 ICD Code: O69.2XX0 - LABOR AND DEL COMP BY OTH CORD ENTANGLE, W COMPRSN, UNSP Status: Acute Current Visit: Yes - Patient Summary/Data Complications: None Consults: None Hospital Course: Uneventful E PDS 0 no suicidal ideations, plans, desire to hurt self or others. - Patient Instructions Diet: Regular Diet as Tolerated Driving: Do Not Drive Showering/Bathing: May Shower (48 hours), No Tub Bathing/Swimming (I'm 6 weeks) Notify Provider of: Fever, Increased Pain, Swelling and Redness, Drainage, Nausea and/or Vomiting Other/Special Instructions: E PDS 0 no suicidal ideations, plans, desire to hurt self or others. - Discharge Plan Home Medications: Home Meds Acetaminophen [Tylenol] 650 mg PO Q4H PRN tablet 04/30/17 [Rx] Docusate Sodium [Colace] 100 mg PO BID PRN cap 04/30/17 [Rx] Ibuprofen [IJD: Ibuprofen] 600 mg PO Q4H PRN tablet 04/30/17 [Rx] Patient Handouts: and Mastitis, Home Care Instructions for Mom, Breast Engorgement Referrals: David Randle MD [Primary Care Provider] - (Make appointment to return to clinic on 05/11/17) - Discharge Summary/Plan Comment DC Time >30 min.: No - Patient Data Vitals - Most Recent: Last Vital Signs Temp 97.3 F 04/30/17 03:15 Pulse 99 04/30/17 03:15 Resp 16 04/30/17 03:15 BP 111/70 04/30/17 03:15 Pulse Ox 97 04/30/17 03:15 Weight - Most Recent: 141 lb 15.996 oz I&O - Last 24 hours: Intake & Output 04/29/17 04/30/17 04/30/17 22:59 06:59 14:59 Intake Total 480 Balance 480 Lab Results - Last 24 hrs: Laboratory Results - last 24 hr 04/30/17 Range/Units 06:00 WBC 12.03 H (3.98-10.04) K/mm3 RBC 3.67 L (3.98-5.22) M/mm3 Hgb 10.3 L (11.2-15.7) gm/L Hct 30.6 L (34.1-44.9) % MCV 83.4 (79.4-94.8) fl MCH 28.1 (25.6-32.2) pg MCHC 33.7 (32.2-35.5) g/dl RDW Std Deviation 37.7 (36.4-46.3) fL Plt Count 155 L (182-369) K/mm3 MPV 11.7 (9.4-12.3) fl Neut % (Auto) 74.3 H (34.0-71.1) % Lymph % (Auto) 17.4 L (19.3-51.7) % [place] % (Auto) 7.1 (4.7-12.5) % Eos % (Auto) 0.7 (0.7-5.8) Baso % (Auto) 0.2 (0.1-1.2) % Neut # (Auto) 8.94 H (1.56-6.13) K/mm3 Lymph # (Auto) 2.09 (1.18-3.74) K/mm3 [place] # (Auto) 0.85 H (0.24-0.36) K/mm3 Eos # (Auto) 0.09 (0.04-0.36) K/mm3 Baso # (Auto) 0.02 (0.01-0.08) K/mm3 Med Orders - Current: Current Medications Acetaminophen (Tylenol) 650 mg PO Q4H PRN PRN Reason: mild pain or fever Benzocaine/Menthol (Dermoplast Pain Relief [place]) 56 gm TOP ASDIRECTED PRN PRN Reason: arash care Last Admin: 04/29/17 09:56 Dose: 1 can Docusate Sodium (Colace) 100 mg PO BID PRN PRN Reason: Constipation Ibuprofen (Motrin) 600 mg PO Q4H PRN PRN Reason: Mild pain or fever Last Admin: 04/30/17 01:05 Dose: 600 mg Witch Arlene (Tucks) 1 pad TOP ASDIRECTED PRN PRN Reason: arash care Last Admin: 04/29/17 09:56 Dose: 1 can Discontinued Medications Bupivacaine HCl (Sensorcaine-Mpf 0.25%) 10 ml .ROUTE .[employer] ONE Stop: 04/29/17 22:23 Diphenhydramine HCl (Benadryl) 25 mg IVPUSH Q6H PRN PRN Reason: Pruritis Last Admin: 04/29/17 04:46 Dose: 25 mg Ephedrine Sulfate (Ephedrine Sulfate) 5 mg IVPUSH ASDIRECTED PRN PRN Reason: Hypotension Fentanyl (Sublimaze) Confirm Administered Dose 100 mcg .ROUTE .[employer] ONE Stop: 04/29/17 03:21 Last Admin: 04/29/17 03:59 Dose: 100 mcg Fentanyl (Sublimaze) 100 mcg EPIDUR ONETIME PRN PRN Reason: Pain Fentanyl/Bupivacaine HCl (Fentanyl/Bupivacaine/Ns 2 Mcg-0.125% 100 Ml) 100 ml EPIDUR ASDIRECTED [facility] Last Admin: 04/29/17 03:59 Dose: 100 ml Lactated Ringer's (Ringers, Lactated) 1,000 mls @ 100 mls/hr IV ASDIRECTED [facility] Last Admin: 04/29/17 07:25 Dose: 999 mls/hr Oxytocin 20 unit/ Lactated (Ringer's) 1,002 mls @ 1,503 mls/hr IV ASDIRECTED [place]; 500 MUNITS/MIN PRN Reason: Protocol Last Admin: 04/29/17 08:15 Dose: 500 munits/min, 1,503 mls/hr Nalbuphine HCl (Nubain) 10 mg IVPUSH Q2H PRN PRN Reason: Pain (moderate 4-6) Ondansetron HCl (Zofran) 4 mg IVPUSH Q4H PRN PRN Reason: Nausea/Vomiting Sodium Chloride (Saline Flush) 10 ml FLUSH ASDIRECTED PRN PRN Reason: Keep Vein Open *Q Meaningful Use (DIS) - VTE *Q VTE Criteria *Q: - Stroke *Q Stroke Criteria *Q: - AMI *Q AMI Criteria *Q:
--- NOTE | 2017-04-30 13:07 | PCM48HPAN ---
Post Anesthesia Note - EVALUATION WITHIN 48HRS OF ANESTHETIC Vital Signs in Normal Range: Yes Patient Participated in Evaluation: Yes Respiratory Function Stable: Yes Airway Patent: Yes Cardiovascular Function Stable: Yes Hydration Status Stable: Yes Pain Control Satisfactory: Yes Nausea and Vomiting Control Satisfactory: Yes Mental Status Recovered: Yes - COMMENTS/OBSERVATIONS Free Text/Narrative:: Pt doing well resting in bed. No anesthetic complications.
== END 2017-04-30 13:15 | disposition home or self-care (01) | DRG 560 ==
LOC: JD.OBCHECK 02:32 → JD.OB 02:35 → JD.OBCHECK 03:05 → JD.OB 03:10 → UNDOADMOB 03:10 → OBSVTOIN 08:10 → JD.OB 08:10
PROVIDERS: ADMIT Obstetrics & Gynecology; ATTEND Obstetrics & Gynecology
PROC: 10E0XZZ Delivery of Products of Conception, External Approach (ICD-10-PCS; principal; 2017-04-29)
PROC: 10907ZC Drainage of Amniotic Fluid, Therapeutic from Products of Conception, Via Natural or Artificial Opening (ICD-10-PCS; 2017-04-29)
PROC: 0HQ9XZZ Repair Perineum Skin, External Approach (ICD-10-PCS; 2017-04-29)
PROC: 00HU33Z Insertion of Infusion Device into Spinal Canal, Percutaneous Approach (ICD-10-PCS; 2017-04-29)
PROC: 3E0R3BZ Introduction of Anesthetic Agent into Spinal Canal, Percutaneous Approach (ICD-10-PCS; 2017-04-29)
PROC: 3E0234Z Introduction of Serum, Toxoid and Vaccine into Muscle, Percutaneous Approach (ICD-10-PCS; 2017-04-30)
DX: O70.0 First degree perineal laceration during delivery (principal); O69.2XX0 Labor and delivery complicated by other cord entanglement, with compression, not applicable or unspecified; Z3A.40 40 weeks gestation of pregnancy; Z37.0 Single live birth; Z23 Encounter for immunization
CPT/HCPCS: 36415; 51702; 59409; 85025; A9270-GY; J1200; J2590; J3010; J7120

== ENCOUNTER 2022-10-02 07:03 | Inpatient (IN) | payer BC ==
[~2022-10-02 07:03] MED LIST: Lactated Ringers 1,000 ML IV SCH; Sodium Chloride 0.9% 10 ML Syringe FLUSH PRN; Sodium Chloride 0.9% 10 ML Syringe FLUSH SCH
[2022-10-02] MEDS ORDERED: Bupivacaine 0.5% 30 ML SDV ONE ×2 (07:17→09:56)
[2022-10-02 07:28] LABS: APPEARANCE,URINE SLT CLOUDY (Clear); BILIRUBIN,URINE NEGATIVE (Negative); COLOR,URINE YELLOW (Yellow); GLUCOSE,URINE NEGATIVE (Negative); KETONES,URINE NEGATIVE (Negative); LEUKOCYTE ESTERASE,URINE TRACE (Negative); NITRITE,URINE NEGATIVE (Negative); OCCULT BLOOD,URINE 3+ (Negative); PROTEIN,URINE NEGATIVE (Negative)
[2022-10-02] MEDS ORDERED: Lidocaine 1% 5 ML VIAL ONE (07:32)
[2022-10-02] MEDS ORDERED: Midazolam 1 MG/ML 2 ML SDV ONE (07:32)
[2022-10-02] MEDS ORDERED: fentaNYL 100 MCG/2 ML SDV ONE (07:32)
[2022-10-02] MEDS ORDERED: Ondansetron 4 MG/2 ML SDV ONE ×2 (07:32→08:42)
[2022-10-02] MEDS ORDERED: Dexamethasone 4 MG/ML 5 ML MDV ONE (07:32)
[2022-10-02] MEDS ORDERED: Propofol 200 MG/20 ML SDV ONE (07:32)
[2022-10-02] MEDS ORDERED: ceFAZolin 2 GM Vial ONE (07:49)
[2022-10-02] MEDS ORDERED: Succinylcholine 200 MG/10 ML MDV ONE (07:49)
[2022-10-02] MEDS ORDERED: fentaNYL 100 MCG/2 ML SDV IVPUSH PRN (08:21)
[2022-10-02] MEDS ORDERED: HYDROmorphone 0.5 MG/0.5 ML Syringe IVPUSH PRN (08:21)
[2022-10-02] MEDS ORDERED: Scopolamine 1.5 MG Transdermal Patch TRDERM STA (08:28)
[2022-10-02] MEDS ORDERED: Ketorolac 30 MG/ML SDV ONE (08:42)
[2022-10-02] MEDS ORDERED: HYDROmorphone 0.5 MG/0.5 ML Syringe ONE ×2 (09:24→10:22)
[2022-10-02] MEDS ORDERED: Rocuronium 50 MG/5 ML Vial ONE (09:46)
[2022-10-02] MEDS ORDERED: Neostigmine Methylsulfate 10 MG/10 ML MDV ONE (10:01)
[2022-10-02] MEDS ORDERED: Acetaminophen/oxyCODONE 325-5 MG Tab PO PRN (13:02)
[2022-10-02] MEDS ORDERED: Magnesium Hydroxide 400 MG/5 ML Susp 30 ML Cup PO PRN (13:02)
[2022-10-02] MEDS ORDERED: Ondansetron 4 MG/2 ML SDV IVPUSH PRN (13:02)
[2022-10-02] MEDS: Acetaminophen/oxyCODONE 325-5 MG Tab PO PRN ×2 (14:50→21:51)
[2022-10-02] MEDS: Ketorolac 30 MG/ML SDV IVPUSH SCH ×2 (15:31→21:48)
[2022-10-02] MEDS: Docusate Sodium 100 MG Cap PO SCH (21:50)
[2022-10-03] MEDS: Ketorolac 30 MG/ML SDV IVPUSH SCH (04:00)
[2022-10-03] MEDS: Acetaminophen/oxyCODONE 325-5 MG Tab PO PRN ×2 (04:01→09:48)
[2022-10-03 06:04] LABS: BASOPHILS ABSOLUTE AUTO 0.02 K/mm3 (0.01-0.08); BASOPHILS PERCENT AUTO 0.2 % (0.1-1.2); EOSINOPHILS ABSOLUTE AUTO 0.09 K/mm3 (0.04-0.36); EOSINOPHILS PERCENT AUTO 0.8 (0.7-5.8); HEMATOCRIT 33.6 % (34.1-44.9); HEMOGLOBIN 11.3 gm/dl (11.2-15.7); IMMATURE GRAN ABSOLUTE AUTO 0.02 K/mm3 (0.00-0.10); IMMATURE GRAN PERCENT AUTO 0.2 % (<=1.0); LYMPHOCYTES ABSOLUTE AUTO 2.03 K/mm3 (1.18-3.74); LYMPHOCYTES PERCENT AUTO 18.8 % (19.3-51.7); MEAN CORPUSCULAR HEMOGLOBIN 28.6 pg (25.6-32.2); MEAN CORPUSCULAR HGB CONC 33.6 g/dl (32.2-35.5); MEAN CORPUSCULAR VOLUME 85.1 fl (79.4-94.8); MEAN PLATELET VOLUME 10.6 fl (9.4-12.3); MONOCYTES ABSOLUTE AUTO 1.02 K/mm3 (0.24-0.36); MONOCYTES PERCENT AUTO 9.4 % (4.7-12.5); NEUTROPHILS ABSOLUTE AUTO 7.63 K/mm3 (1.56-6.13); NEUTROPHILS PERCENT AUTO 70.6 % (34.0-71.1); PLATELET COUNT,PLT 257 K/mm3 (182-369); RED BLOOD CELL COUNT 3.95 M/mm3 (3.98-5.22); WHITE BLOOD CELL COUNT,WBC 10.81 K/mm3 (3.98-10.04)
[2022-10-03] MEDS: Docusate Sodium 100 MG Cap PO SCH (08:24)
[2022-10-03] MEDS ORDERED: Ibuprofen 600 MG Tab PO PRN (09:30)
[2022-10-03 12:13] VITALS: BP 115/63; PULSE 69
== END 2022-10-03 12:10 | disposition home or self-care (01) | DRG 513 ==
LOC: JD.SDS 07:03 → JD.OB 12:33
PROVIDERS: ADMIT Obstetrics & Gynecology; ATTEND Obstetrics & Gynecology
PROC: 0UPD0HZ Removal of Contraceptive Device from Uterus and Cervix, Open Approach (ICD-10-PCS; principal; 2022-10-02)
DX: T83.31XA Breakdown (mechanical) of intrauterine contraceptive device, initial encounter (principal); Y83.8 Other surgical procedures as the cause of abnormal reaction of the patient, or of later complication, without mention of misadventure at the time of the procedure; Z98.890 Other specified postprocedural states; Z87.440 Personal history of urinary (tract) infections; Z53.31 Laparoscopic surgical procedure converted to open procedure
CPT/HCPCS: 36415; 74018; 74018-26; 81003; 85025; 86850; 86900; 86901; 87086; A9270-GY; J0330; J0690; J1100; J1170; J1885; J2250; J2405; J2704; J2710; J3010; J3490; J7120